=== PATIENT | female | born 1965 | race Caucasian/White ===

== ENCOUNTER 2018-07-12 08:05 | Inpatient (IN) | payer OTHER ==
[~2018-07-12 08:05] MED LIST: CEFAZOLIN 2 GM/50 ML (PMX) 50 ML IVPB; GLYCOPYRROLATE 0.4 MG INJ; NEOSTIGMINE 3 MG/3 ML SYRINGE
[2018-07-12] MEDS ORDERED: MIDAZOLAM 1 MG/ML 2 ML INJ (09:58)
[2018-07-12] MEDS ORDERED: morphine SULFATE/PF (10 MG/10 ML) INJ (10:01)
[2018-07-12] MEDS ORDERED: ONDANSETRON 4 MG INJ (11:34)
[2018-07-12] MEDS ORDERED: LIDOCAINE 2% (SDV) 5 ML INJ (11:38)
[2018-07-12] MEDS ORDERED: PROPOFOL 20 ML (11:38)
[2018-07-12] MEDS ORDERED: ROCURONIUM 50 MG INJ (11:38)
[2018-07-12] MEDS ORDERED: CEFAZOLIN 1 GM INJ (11:39)
[2018-07-12] MEDS ORDERED: ZOLPIDEM 5 MG TAB PO ×2 (12:00→12:30)
[2018-07-12] MEDS ORDERED: BISACODYL (EC) 5 MG TAB PO ×2 (12:00→12:30)
[2018-07-12] MEDS ORDERED: HYDROCODONE/APAP (5/325) TAB PO ×4 (12:00→12:30)
[2018-07-12] MEDS: METOCLOPRAMIDE 10 MG TAB PO ×2 (12:00→17:25)
[2018-07-12] MEDS ORDERED: LACTATED RINGER'S 1,000 ML IV (12:03)
[2018-07-12] MEDS ORDERED: ONDANSETRON INJ 6 MG in DEXTROSE 5% 50 ML IVPB (12:30)
[2018-07-12] MEDS ORDERED: KETOROLAC 30 MG INJ IV (12:30)
[2018-07-12] MEDS ORDERED: DIPHENHYDRAMINE 50 MG CAP PO (12:30)
[2018-07-12] MEDS: KETOROLAC 30 MG INJ IV ×3 (13:15→23:49)
[2018-07-12] MEDS: CEFAZOLIN 1 GM/50 ML (PMX) 50 ML IVPB ×2 (13:16→21:38)
[2018-07-12] MEDS: LACTATED RINGER'S 1,000 ML IV ×2 (13:16→20:46)
[2018-07-12] MEDS ORDERED: CEFAZOLIN 1 GM/50 ML (PMX) 50 ML IVPB (14:00)
[2018-07-12] MEDS: ONDANSETRON INJ 6 MG in DEXTROSE 5% 50 ML IVPB (15:13)
[2018-07-12] MEDS: ESTRADIOL VALERATE 20 MG/0.5 ML INJ IM (15:13)
[2018-07-12] MEDS ORDERED: METOCLOPRAMIDE 10 MG TAB PO (18:00)
[2018-07-12] MEDS ORDERED: ONDANSETRON 4 MG INJ IV (18:30)
[2018-07-12] MEDS: METOCLOPRAMIDE 10 MG INJ IV ×2 (18:34→23:49)
[2018-07-13] MEDS: LACTATED RINGER'S 1,000 ML IV ×2 (04:46→12:27)
[2018-07-13] MEDS: DIPHENHYDRAMINE 50 MG CAP PO (04:48)
[2018-07-13 05:31] LABS: ADD MAN DIFF? NO
[2018-07-13] MEDS: CEFAZOLIN 1 GM/50 ML (PMX) 50 ML IVPB (05:36)
[2018-07-13 05:37] LABS: BASOPHILS % 0.2 % (0.0-2.0); EOSINOPHILS # 0.1 10^3/ul (0.0-0.5); EOSINOPHILS % 0.9 % (0.0-7.0); HEMATOCRIT 33.4 % (37.0-47.0); HEMOGLOBIN 10.5 g/dl (12.0-16.0); LYMPHOCYTES # 2.1 10^3/ul (0.8-2.9); LYMPHOCYTES % 23.2 % (15.0-51.0); MEAN CORPUSCULAR HEMOGLOBIN 27.1 pg (29.0-33.0); MEAN CORPUSCULAR HGB CONC 31.4 g/dl (32.0-37.0); MEAN CORPUSCULAR VOLUME 86.1 fl (82.0-101.0); MEAN PLATELET VOLUME 10.4 fl (7.4-10.4); MONOCYTES % 10.5 % (0.0-11.0); NEUTROPHIL # 5.9 10^3/ul (1.6-7.5); NEUTROPHILS % 64.9 % (39.0-77.0); PLATELET COUNT 298 10^3/UL (140-415); RED BLOOD COUNT 3.88 10^6/ul (4.20-5.40); RED CELL DISTRIBUTION WIDTH 13.2 % (11.5-14.5)
[2018-07-13] MEDS: KETOROLAC 30 MG INJ IV ×3 (05:37→17:16)
[2018-07-13] MEDS: METOCLOPRAMIDE 10 MG TAB PO ×4 (05:37→17:16)
[2018-07-13 06:23] LABS: ANION GAP 6 (5-13); BLOOD UREA NITROGEN 9 mg/dl (7-20); CARBON DIOXIDE 27 mmol/L (21-31); CHLORIDE 104 mmol/L (97-110); CREATININE 0.51 mg/dl (0.44-1.00); SODIUM 137 mmol/L (135-144)
[2018-07-13] MEDS: PANTOPRAZOLE (EC) 40 MG TAB PO (09:21)
[2018-07-13] MEDS ORDERED: traMADol-APAP 37.5-325 1 TAB PO (13:00)
[2018-07-13] MEDS: BISACODYL (EC) 5 MG TAB PO (14:09)
[2018-07-13] MEDS: HYDROmorphONE 0.5 MG/0.5 ML SYG IV (15:28)
[2018-07-14] MEDS: KETOROLAC 30 MG INJ IV ×4 (00:42→18:25)
[2018-07-14] MEDS: METOCLOPRAMIDE 10 MG INJ IV ×2 (00:42→01:11)
[2018-07-14] MEDS: METOCLOPRAMIDE 10 MG TAB PO ×5 (05:33→23:47)
[2018-07-14] MEDS: PANTOPRAZOLE (EC) 40 MG TAB PO (08:23)
[2018-07-14] MEDS: BISACODYL (EC) 5 MG TAB PO (12:05)
[2018-07-14] MEDS: CEPHALEXIN 500 MG CAP PO ×3 (12:07→23:47)
[2018-07-15] MEDS: KETOROLAC 30 MG INJ IV ×3 (05:42→12:35)
[2018-07-15] MEDS: METOCLOPRAMIDE 10 MG TAB PO ×2 (05:42→12:04)
[2018-07-15] MEDS: CEPHALEXIN 500 MG CAP PO ×2 (05:43→12:03)
[2018-07-15] MEDS: PANTOPRAZOLE (EC) 40 MG TAB PO (09:23)
[2018-07-15] MEDS: traMADol-APAP 37.5-325 1 TAB PO (09:24)
[2018-07-15] MEDS: IBUPROFEN 800 MG TAB PO (12:03)
== END 2018-07-15 15:00 | disposition home or self-care (01) | DRG 743 ==
LOC: REC 08:05 → MS1 12:50
PROC: 0UT00ZZ Resection of Right Ovary, Open Approach (ICD-10-PCS; principal; 2018-07-12 09:00)
DX: N83.201 Unspecified ovarian cyst, right side (principal); N80.1 Endometriosis of ovary; R10.2 Pelvic and perineal pain; K66.0 Peritoneal adhesions (postprocedural) (postinfection)
CPT/HCPCS: 71045; 80051; 82565; 84520; 85025; 87086; 88305; 93005